=== PATIENT | male | born 1960 | race Caucasian/White ===

== ENCOUNTER 2017-08-23 16:50 | Emergency (ER) | payer BC ==
[2017-08-23 17:19] LABS: BASO % 0.2 % (0-6); EOS % 1.4 % (0-6); HEMATOCRIT 43.4 % (42.0-52.0); HEMOGLOBIN 14.5 gm/dl (14.0-18.0); LYMPH % 15.7 % (16-45); MEAN CELL VOLUME 89.3 fl (81-97); MEAN CORPUSCULAR HEMOGLOBIN 29.8 pg (27-33); MEAN CORPUSCULAR HGB CONC 33.4 g/dl (32-36); MEAN PLATELET VOLUME 9.2 fl (7.4-10.4); MONO % 14.7 % (0-9); PLATELET COUNT 309 K/uL (130-400); RED BLOOD COUNT 4.86 M/uL (4.40-5.70); RED CELL DISTRIBUTION WIDTH 13.4 % (11.5-14.5); WHITE BLOOD COUNT W/O DIFF 5.7 K/uL (4.2-12.2)
--- NOTE | 2017-08-23 17:26 | Emergency Department Record ---
History of Present Illness - General Chief complaint: Head Injury Stated complaint: LIMB FELL AND HIT HEAD Time Seen by Provider: 08/23/17 17:09 Mode of Arrival: Ambulatory - History of Present Illness Initial comments: cutting a tree down and limb in the top of tree came down and hit him in the left occipital area of scalp. momentary LOC and he ambulated to the ED with a 4 inch laceration of scalp. No nausea or vomiting and only hurts where the tree hit his head. No other injuries. Neck sore on palpation and hard collar placed Onset/Timin -: Minutes(s) Mechanism of Injury: Work related injury Location: Occipital Loss of Consciousness: Yes Previous Trauma to this Area: No Place: Outdoors Severity: Mild Provoking factors: None known Other Injuries: None Associated Symptoms: Denies other symptoms - Related Data Home Medications Medication Instructions Recorded Confirmed Last Taken No Home Med [NO HOME MEDS] 08/23/17 08/23/17 Unknown Allergies/Adverse reactions: Allergies Allergy/AdvReac Type Severity Reaction Status Date / Time Penicillins Allergy Unknown unknown Verified 08/23/17 16:53 Travel Screening - Travel/Exposure Within Last 30 Days Have you traveled within the last 30 days?: No - Travel/Exposure Within Last Year Have you traveled outside the [place] in the last year?: No - Additonal Travel Details Have you been exposed to anyone with a communicable illness?: No - Travel Symptoms Symptom Screening: None Review of Systems Reviewed: No additional complaints except as noted below Constitutional: Reports: As per HPI. Denies: Chills, Fever, Malaise, Night sweats, Weakness, Weight change Eyes: Reports: As per HPI. Denies: Eye discharge, Eye pain, Photophobia, Vision change ENT: Reports: As per HPI. Denies: Congestion, Dental pain, Ear pain, Epistaxis , Hearing loss, Throat pain Respiratory: Reports: As per HPI. Denies: Cough, Dyspnea, Hemoptysis, Stridor, Wheezes Cardiovascular: Reports: As per HPI. Denies: Arrhythmia, Chest pain, Dyspnea on exertion, Edema, Murmurs, Orthopnea, Palpitations, Paroxysmal nocturnal dyspnea, Rheumatic Fever, Syncope Endocrine: Reports: As per HPI. Denies: Fatigue, Heat or cold intolerance, Polydipsia, Polyuria Gastrointestinal: Reports: As per HPI. Denies: Abdominal pain, Constipation, Diarrhea, Hematemesis, Hematochezia, Melena, Nausea, Vomiting Genitourinary: Reports: As per HPI. Denies: Dysuria, Frequency, Hematuria, Incontinence, Retention, Testicular pain, Testicular mass, Urgency Musculoskeletal: Reports: As per HPI. Denies: Arthralgia, Back pain, Gout, Joint swelling, Myalgia, Neck pain Skin: Reports: As per HPI. Denies: Bruising, Change in color, Change in hair/ nails, Lesions, Pruritus, Rash Neurological: Reports: As per HPI. Denies: Abnormal gait, Confusion, Headache, Numbness, Paresthesias, Seizure, Tingling, Tremors, Vertigo, Weakness Psychiatric: Reports: As per HPI. Denies: Anxiety, Auditory hallucinations, Depression, Homicidal thoughts, Suicidal thoughts, Visual hallucinations Hematological/Lymphatic: Reports: As per HPI. Denies: Anemia, Blood Clots, Easy bleeding, Easy bruising, Swollen glands Past Medical History - SOCIAL HISTORY Smoking Status: Unknown if ever smoked Alcohol Use: Occasional Drug Use: None - RESPIRATORY Hx Respiratory Disorders: No - CARDIOVASCULAR Hx Cardio Disorders: No - NEURO Hx Neuro Disorders: No - GI Hx GI Disorders: No - Hx Genitourinary Disorders: No - ENDOCRINE Hx Endocrine Disorders: No - MUSCULOSKELETAL Hx Musculoskeletal Disorders: No - PSYCH Hx Psych Problems: No - HEMATOLOGY/ONCOLOGY Hx Hematology/Oncology Disorders: No Family Medical History Any Significant Family History?: No Physical Exam - General General Appearance: Alert, Oriented x3, Cooperative, No acute distress - Head Head exam: Normal inspection - Eye Eye exam: Normal appearance, PERRL Pupils: Normal accommodation - ENT ENT exam: Normal exam, Mucous membranes moist, Normal external ear exam, Normal orophraynx, TM's normal bilaterally Ear exam: Normal external inspection. negative: External canal tenderness Nasal Exam: Normal inspection. negative: Discharge, Sinus tenderness Mouth exam: Normal external inspection, Tongue normal Teeth exam: Normal inspection. negative: Dental caries Throat exam: Normal inspection. negative: Tonsillar erythema, Tonsillar exudate - Neck Neck exam: Normal inspection, Full ROM. negative: Tenderness - Respiratory Respiratory exam: Normal lung sounds bilaterally. negative: Respiratory distress - Cardiovascular Cardiovascular Exam: Regular rate, Normal rhythm, Normal heart sounds - GI/Abdominal GI/Abdominal exam: Soft, Normal bowel sounds. negative: Tenderness - Rectal Rectal exam: Deferred - exam: Deferred - Extremities Extremities exam: Normal inspection, Full ROM, Normal capillary refill. negative: Tenderness - Back Back exam: Reports: Normal inspection, Full ROM. Denies: Muscle spasm, Rash noted, Tenderness - Neurological Neurological exam: Alert, Normal gait, Oriented X3, Reflexes normal - Psychiatric Psychiatric exam: Normal affect, Normal mood - Skin Skin exam: Other (scalp laceration and scalp hematoma 4 inches) Course Vital Signs 08/23/17 16:58 Temperature 97.6 F Pulse Rate 94 H Respiratory 20 Rate Blood Pressure 124/88 Pulse Ox 98 4 inch laceration - Reevaluation(s) Reevaluation #1: laceration repair 1% lidocaine cleaned wound irrigated wound repaired with 4.0 prolin times 8 sutures 08/23/17 19:18 08/23/17 19:51 Medical Decision Making - Data Complexity MDM Data: Labs Ordered and/or Reviewed, X-Ray Ordered and/or Reviewed (CT head neg ,CT of neck negative) - Lab Data Result diagrams: 08/23/17 17:13 Lab Results 08/23/17 Range/Units 17:13 WBC 5.7 (4.2-12.2) K/uL RBC 4.86 (4.40-5.70) M/uL Hgb 14.5 (14.0-18.0) gm/dl Hct 43.4 (42.0-52.0) % MCV 89.3 (81-97) fl MCH 29.8 (27-33) pg MCHC 33.4 (32-36) g/dl RDW 13.4 (11.5-14.5) % Plt Count 309 (130-400) K/uL MPV 9.2 (7.4-10.4) fl Gran % 68.0 (47-80) % Lymphocytes % 15.7 L (16-45) % Monocytes % 14.7 H (0-9) % Eosinophils % 1.4 (0-6) % Basophils % 0.2 (0-6) % Disposition Clinical Impression: Laceration of scalp Qualifiers: Encounter type: initial encounter Qualified Code(s): S01.01XA - Laceration without foreign body of scalp, initial encounter Contusion of head Qualifiers: Encounter type: initial encounter Contusion of head detail: scalp Qualified Code(s): S00.03XA - Contusion of scalp, initial encounter Disposition: Home, Self-Care Condition: (1) Good Instructions: Concussion (ED), Laceration (ED) Additional Instructions: tylenol for pain sutures out harry 10 days Forms: Patient Portal Access Time of Disposition: 19:56 Quality - Quality Measures Quality Measures: N/A - Blood Pressure Screening Does Patient Have Any of the Following: No Blood Pressure Classification: Pre-Hypertensive BP Reading Systolic Measurement: 124 Diastolic Measurement: 88 Screening for High Blood Pressure: < Pre-Hypertensive BP, F/U Documented > [ G8950] Pre-Hypertensive Follow-up Interventions: Referral to alternative/primary care provider.
[2017-08-23] MEDS ORDERED: Diph,Pert(Acell),Tet Vac 0.5 ML SYR IM ONE (19:18)
--- NOTE | 2017-08-23 19:38 | CT SCAN REPORT ---
EXAM: CT SCAN HEAD WO CONTRAST HISTORY: HEAD TRAUMA, LARGE TREE BRANCH FELL ON TOP OF HEAD WITH HEADACHE AND NECK PAIN. TECHNIQUE: Axial CT scan of the head performed without IV contrast. COMPARISON: None. ENCOUNTER: Initial. FINDINGS: No definite acute intracranial hemorrhage identified. No focal mass effect or midline shift apparent. Prominent soft tissue swelling in the scalp of the high left parietal region. No definite underlying calvarial fracture identified. Visualized paranasal sinuses and mastoids all appear essentially clear. IMPRESSION: 1. APPEARANCE CONSISTENT WITH A SCALP HEMATOMA IN THE HIGH LEFT PARIETAL REGION. 2. NO DEFINITE ACUTE INTRACRANIAL HEMORRHAGE OR FOCAL MASS EFFECT IDENTIFIED. JOB NUMBER: [id number] MTDD
--- NOTE | 2017-08-23 19:45 | CT SCAN REPORT ---
EXAM: CT SCAN CERVICAL SPINE WO CONTRAST HISTORY: LARGE TREE BRANCH FELL ON TOP OF HEAD WITH HEAD AND NECK PAIN. TECHNIQUE: Axial CT scan of the entire cervical spine performed without IV contrast. COMPARISON: No prior cervical CT with which to compare. Comparison is made with an AP and lateral plain film series of the cervical spine dated 06/25/[address] Almeida's office that have been loaded into our PACS. Report of the prior study is not available. ENCOUNTER: Initial. FINDINGS: There is an anterior cervical fusion at the C5-6 level with an associated metallic plate and screw fixation device in place. This is new compared with the prior plain film series of 06/25/14. Mild apical pleural thickening bilaterally. No apical pneumothorax is evident. No definite fracture of the cervical spine identified. No prevertebral soft tissue swelling is evident. There is degenerative change at multiple levels including the C4-5 and C6-7 interspaces with associated hypertrophic spurring as well as degenerative change at the odontoid/anterior arch of C1 articulation. Multilevel facet joint arthropathy as well, particularly at the C4 -5 level on the right. IMPRESSION: 1. NO DEFINITE FRACTURE OR PREVERTEBRAL SOFT TISSUE SWELLING SEEN IN THE CERVICAL SPINE. 2. POST-OP ANTERIOR CERVICAL FUSION AT THE C5-6 LEVEL. 3. MULTILEVEL DEGENERATIVE CHANGE IN THE CERVICAL SPINE. JOB NUMBER: [id number] MTDD
== END 2017-08-23 20:12 | disposition home or self-care (01) ==
LOC: ER 16:50
DX: S01.01XA Laceration without foreign body of scalp, initial encounter (principal); S00.03XA Contusion of scalp, initial encounter; R51 Headache; W22.8XXA Striking against or struck by other objects, initial encounter; Y93.H9 Activity, other involving exterior property and land maintenance, building and construction; Y99.0 Civilian activity done for income or pay
CPT/HCPCS: 12004; 70450; 72125; 85025; 90715; 96372; 99284

== ENCOUNTER 2017-09-02 09:12 | Emergency (ER) | payer BC ==
--- NOTE | 2017-09-02 09:36 | Emergency Department Record ---
History of Present Illness - General Chief Complaint: Suture removal Stated Complaint: stitches removed Source: Patient, RN notes reviewed - History of Present Illness Initial Comments: laceration healing nicely, No headaches and no nausea, neuro intact - Related Data Allergies Allergy/AdvReac Type Severity Reaction Status Date / Time Penicillins Allergy Unknown unknown Verified 09/02/17 09:34 Review of Systems Reviewed: No additional complaints except as noted below Constitutional: Reports: As per HPI. Denies: Chills, Fever, Malaise, Night sweats, Weakness, Weight change Eyes: Reports: As per HPI. Denies: Eye discharge, Eye pain, Photophobia, Vision change ENT: Reports: As per HPI. Denies: Congestion, Dental pain, Ear pain, Epistaxis , Hearing loss, Throat pain Respiratory: Reports: As per HPI. Denies: Cough, Dyspnea, Hemoptysis, Stridor, Wheezes Cardiovascular: Reports: As per HPI. Denies: Arrhythmia, Chest pain, Dyspnea on exertion, Edema, Murmurs, Orthopnea, Palpitations, Paroxysmal nocturnal dyspnea, Rheumatic Fever, Syncope Endocrine: Reports: As per HPI. Denies: Fatigue, Heat or cold intolerance, Polydipsia, Polyuria Gastrointestinal: Reports: As per HPI. Denies: Abdominal pain, Constipation, Diarrhea, Hematemesis, Hematochezia, Melena, Nausea, Vomiting Genitourinary: Reports: As per HPI. Denies: Dysuria, Frequency, Hematuria, Incontinence, Retention, Testicular pain, Testicular mass, Urgency Musculoskeletal: Reports: As per HPI. Denies: Arthralgia, Back pain, Gout, Joint swelling, Myalgia, Neck pain Skin: Reports: As per HPI. Denies: Bruising, Change in color, Change in hair/ nails, Lesions, Pruritus, Rash Neurological: Reports: As per HPI. Denies: Abnormal gait, Confusion, Headache, Numbness, Paresthesias, Seizure, Tingling, Tremors, Vertigo, Weakness Psychiatric: Reports: As per HPI. Denies: Anxiety, Auditory hallucinations, Depression, Homicidal thoughts, Suicidal thoughts, Visual hallucinations Hematological/Lymphatic: Reports: As per HPI. Denies: Anemia, Blood Clots, Easy bleeding, Easy bruising, Swollen glands Past Medical History - SOCIAL HISTORY Smoking Status: Unknown if ever smoked Drug Use: None - RESPIRATORY Hx Respiratory Disorders: No - CARDIOVASCULAR Hx Cardio Disorders: No - NEURO Hx Neuro Disorders: No - GI Hx GI Disorders: No - Hx Genitourinary Disorders: No - ENDOCRINE Hx Endocrine Disorders: No - MUSCULOSKELETAL Hx Musculoskeletal Disorders: No - PSYCH Hx Psych Problems: No - HEMATOLOGY/ONCOLOGY Hx Hematology/Oncology Disorders: No Physical Exam - General General Appearance: Alert, Oriented x3, Cooperative, No acute distress - Head Head exam: Normal inspection - Eye Eye exam: Normal appearance, PERRL Pupils: Normal accommodation - ENT ENT exam: Normal exam, Mucous membranes moist, Normal external ear exam, Normal orophraynx, TM's normal bilaterally Ear exam: Normal external inspection. negative: External canal tenderness Nasal Exam: Normal inspection. negative: Discharge, Sinus tenderness Mouth exam: Normal external inspection, Tongue normal Teeth exam: Normal inspection. negative: Dental caries Throat exam: Normal inspection. negative: Tonsillar erythema, Tonsillar exudate - Neck Neck exam: Normal inspection, Full ROM. negative: Tenderness - Respiratory Respiratory exam: Normal lung sounds bilaterally. negative: Respiratory distress - Cardiovascular Cardiovascular Exam: Regular rate, Normal rhythm, Normal heart sounds - GI/Abdominal GI/Abdominal exam: Soft, Normal bowel sounds. negative: Tenderness - Rectal Rectal exam: Deferred - exam: Deferred - Extremities Extremities exam: Normal inspection, Full ROM, Normal capillary refill. negative: Tenderness - Back Back exam: Reports: Normal inspection, Full ROM. Denies: Muscle spasm, Rash noted, Tenderness - Neurological Neurological exam: Alert, Normal gait, Oriented X3, Reflexes normal - Psychiatric Psychiatric exam: Normal affect, Normal mood - Skin Skin exam: Dry, Intact, Normal color, Warm Course suture removal Disposition Clinical Impression: Visit for suture removal Disposition: Home, Self-Care Condition: (1) Good Instructions: Stitches Removal (ED) Additional Instructions: follow up with family Time of Disposition: 09:36 Quality - Quality Measures Quality Measures: N/A - Blood Pressure Screening Does Patient Have Any of the Following: No Systolic Measurement: ~ Screening for High Blood Pressure: < Pre-Hypertensive BP, F/U Documented > [ G8950] Pre-Hypertensive Follow-up Interventions: Referral to alternative/primary care provider.
== END 2017-09-02 09:45 | disposition home or self-care (01) ==
LOC: ER 09:12
DX: Z48.01 Encounter for change or removal of surgical wound dressing (principal)

== ENCOUNTER 2019-06-07 20:13 | Emergency (ER) | payer BC ==
--- NOTE | 2019-06-07 20:23 | Emergency Department Record ---
History of Present Illness - General Chief Complaint: Laceration(s) Stated Complaint: FALL INJURY/HEAD Time Seen by Provider: 06/07/19 20:14 Source: Patient Mode of Arrival: Ambulatory Limitations: No limitations - History of Present Illness Initial Commments: 58 yo male presents to ED for evaluation following a fall while working on ladder in his garage that occurred just prior to arrival. Patient reports striking the left posterior aspect of the scalp, is unsure if he lost consciousness or not. Patient denies extremity weakness, numbness, or tingling on examination. Patient denies blurred vision or altered speech. Patient denies use of anticoagulation medications, and reports only a history of HTN at his baseline. Onset/Timin -: Minutes(s) Place: Home Context: Accidental Associated Symptoms: None Treatments Prior to Arrival: Bandage - [place] Coma Scale Eye Response: (4) Open spontaneously Motor Response: (6) Obeys commands Verbal Response: (5) Oriented Franco Total: 15 - Related Data Hx Tetanus Toxoid Vaccination: Yes Year of Tetanus Vaccination: 2005 Previous Rx's Medication Instructions Recorded Diazepam [Valium] 5 mg PO Q8H PRN #15 tab 06/07/19 Hydrocodone/Acetaminophen [[place] 1 each PO Q6H PRN #15 tablet 06/07/19 7.5-325 Tablet] Ibuprofen [Motrin] 800 mg PO Q8H PRN #30 tab 06/07/19 Allergies Allergy/AdvReac Type Severity Reaction Status Date / Time Penicillins Allergy Unknown unknown Verified 06/07/19 20:15 Review of Systems Constitutional: Denies: Chills, Fever, Malaise, Night sweats Eyes: Denies: Eye discharge, Eye pain ENT: Denies: Congestion, Ear pain, Epistaxis Respiratory: Denies: Cough, Dyspnea Cardiovascular: Denies: Chest pain, Paroxysmal nocturnal dyspnea Endocrine: Denies: Fatigue, Heat or cold intolerance Gastrointestinal: Denies: Abdominal pain, Nausea, Vomiting Genitourinary: Denies: Incontinence, Retention Musculoskeletal: Denies: Arthralgia, Back pain Skin: Reports: Other (Scalp laceration). Denies: Bruising, Change in color Neurological: Denies: Abnormal gait, Confusion, Seizure Psychiatric: Denies: Anxiety Hematological/Lymphatic: Denies: Anemia, Blood Clots, Easy bleeding, Easy bruising Past Medical History - SOCIAL HISTORY Smoking Status: Unknown if ever smoked Drug Use: None - RESPIRATORY Hx Respiratory Disorders: No - CARDIOVASCULAR Hx Cardio Disorders: No - NEURO Hx Neuro Disorders: No - GI Hx GI Disorders: No - Hx Genitourinary Disorders: No - ENDOCRINE Hx Endocrine Disorders: No - MUSCULOSKELETAL Hx Musculoskeletal Disorders: No - PSYCH Hx Psych Problems: No - HEMATOLOGY/ONCOLOGY Hx Hematology/Oncology Disorders: No Physical Exam - General General Appearance: Alert, Oriented x3, Cooperative, Mild distress, Other (Patient does smell of alcohol on examination, no focal deficits are present on examination.) Limitations: No limitations - Head Head exam detail: Laceration (4.0 cm laceration to the left posteriro scalp, bleeding controlled.). negative: Abrasion, Contusion, Travis's sign, General tenderness, Hematoma - Eye Eye exam: Normal appearance. negative: Conjunctival injection, Periorbital swelling, Periorbital tenderness, Scleral icterus - ENT Ear exam: negative: Auricular hematoma, Auricular trauma Nasal Exam: negative: Active bleeding, Discharge, Dried blood, Foreign body Mouth exam: negative: Drooling, Laceration, Muffled voice, Tongue elevation - Neck Neck exam: Normal inspection. negative: Meningismus, Tenderness - Respiratory Respiratory exam: Normal lung sounds bilaterally. negative: Rales, Respiratory distress, Rhonchi, Stridor - Cardiovascular Cardiovascular Exam: Regular rate, Normal rhythm, Normal heart sounds - GI/Abdominal GI/Abdominal exam: Soft. negative: Rebound, Rigid, Tenderness - Rectal Rectal exam: Deferred - exam: Deferred - Extremities Extremities exam: Normal inspection. negative: Pedal edema, Tenderness - Back Back exam: Reports: Paraspinal tenderness (Left lumbar region). Denies: CVA tenderness (R), CVA tenderness (L), Rash noted - Neurological Neurological exam: Alert, Normal gait, Oriented X3 - Psychiatric Psychiatric exam: Normal affect, Normal mood - Skin Skin exam: Normal color. negative: Abrasion Type of lesion: negative: abrasion Course - Reevaluation(s) Reevaluation #1: 06/07/19 20:26 EKG: NSR 63 Normal axis, normal intervals J-point elevation V2, V3, no arrhythmias or acute ST-T wave changes. Reevaluation #2: 06/07/19 21:02 Laboratory studies were reviewed and appear grossly unremarkable for an acute process except for the following: Alcohol 0.208 CT Brain: No acute intracranial hemorrhage or mass effect STS left parietal scalp CT Cervical Spine: Fusion C5-C6 No acute fracture CT Thoracic Spine: Minimally displaced fracture involving the L1 transverse fracture No thoracic fracture is identified CT Lumbar Spine: Transverse process fractures L1, L2. L3, L4 Chronic pars defect L5 Patient was updated on all results, will consult with Neurosurgery and Trauma services. 06/07/19 22:48 Case was discussed with Dr. Rucker (Neurosurgery) and Dr. Peoples (Trauma), if the patient's pain is well controlled and he is able to ambulate, patient may be discharged home with pain control as directed. Recommendations were discussed with both the patient and his , they are in agreement with the plan of care as discussed and prefer to go home at this time. Patient has seen Dr. Rucker previously for cervical fusion and is a previous patient of his. Reevaluation #3: 06/07/19 21:33 Procedure Note: 4.0 cm laceration to the left posterior scalp, bleeding controlled. Wound was cleaned and prepped in sterile fashion, no residual FB identified on examination. Wound was anesthetized with 1.5 mL of 1% Lidocaine with epinephrine with good anesthesia, and the laceration was repaired with 3-0 Prolene (#6) sutures in interrupted fashion. Patient tolerated the procedure well without complications. Patient's tetanus is UTD Triple antibiotic ointment was applied to the wound and sutures prior to discharge. Wound care instructions were given as well. Medical Decision Making - Lab Data Result diagrams: 06/07/19 20:29 06/07/19 20:29 Critical Care Time Critical Care Time: Yes Total Critical Care Time: 60 Critical Care Time: Trauma evaluation, laboratory interpretation, multiple reassessments and updates, independent review and interpretation of the patient's CT imaging, consultation with both neurosurgery and trauma services, and establishing a safe discharge plan with follow-up. Disposition Disposition: Discharge Clinical Impression: Multiple contusions, Multiple transverse process fractures Fall from ladder Qualifiers: Encounter type: initial encounter Qualified Code(s): W11.XXXA - Fall on and from ladder, initial encounter Scalp laceration Qualifiers: Encounter type: initial encounter Qualified Code(s): S01.01XA - Laceration without foreign body of scalp, initial encounter Disposition: Home, Self-Care Condition: (2) Stable Instructions: Staple Care (ED), Avulsion Fracture (ED) Additional Instructions: Return to ED if your symptoms worsen or if you have any concerns. [place], Valium Motrin 800 mg as directed. Follow-up with Dr. Rucker in 3-5 days as directed. Prescriptions: Ibuprofen [Motrin] 800 mg PO Q8H PRN #30 tab PRN Reason: Pain - Mod To Severe (5-10) Hydrocodone/Acetaminophen [[place] 7.5-325 Tablet] 1 each PO Q6H PRN #15 tablet PRN Reason: Pain - Moderate (5-7) Diazepam [Valium] 5 mg PO Q8H PRN #15 tab PRN Reason: Spasms Referrals: NICOLE RUCKER [MEDICAL DOCTOR] - Forms: Patient Portal Access Time of Disposition: 22:47 Quality - Quality Measures Quality Measures: N/A - Blood Pressure Screening Does Patient Have Any of the Following: No Blood Pressure Classification: Normal BP Reading Systolic Measurement: 117 Diastolic Measurement: 78 Screening for High Blood Pressure: < Normal BP, F/U Not Required > [G8783] Pre-Hypertensive Follow-up Interventions: Referral to alternative/primary care provider.
[2019-06-07 20:36] LABS: ABSOLUTE NEUTROPHIL COUNT 2.57; HEMATOCRIT 43.5 % (42.0-52.0); HEMOGLOBIN 14.4 gm/dl (14.0-18.0); MEAN CELL VOLUME 90.6 fl (81-97); MEAN CORPUSCULAR HGB CONC 33.1 g/dl (32-36); MEAN PLATELET VOLUME 9.2 fl (7.4-10.4); PLATELET COUNT 256 K/uL (130-400); RED CELL DISTRIBUTION WIDTH 14.1 % (11.5-14.5); WHITE BLOOD COUNT W/O DIFF 5.1 K/uL (4.2-12.2)
[2019-06-07 20:45] LABS: BLOOD UREA NITROGEN 10 mg/dL (6-20); CREATININE 0.9 mg/dL (0.7-1.2); EST GLOMERULAR FILTRATION RATE > 60 mL/min
[2019-06-07 20:46] LABS: ALCOHOL 0.208 g/dL (0-0.010); TOTAL PROTEIN 6.6 g/dL (6.6-8.7)
[2019-06-07 20:48] LABS: GLUCOSE,RANDOM 105 mg/dL (74-109)
[2019-06-07 20:50] LABS: ALB/GLOB RATIO 2.1 (1.1-1.8); ALBUMIN 4.5 g/dL (4.0-5.0); ALKALINE PHOSPHATASE 88 U/L (40-129); ALT/SGPT 47 U/L (<41); AST/SGOT 41 U/L (10.0-50.0)
[2019-06-07 21:06] LABS: ANISOCYTOSIS 1+; PLATELET ESTIMATE NORMAL (NORMAL)
[2019-06-07] MEDS ORDERED: DIAZEPAM 5 MG TABLET PO ONE (22:45)
[2019-06-07] MEDS ORDERED: HYDROCODONE/APAP 5/325MG TABLET PO ONE (22:45)
--- NOTE | 2019-06-08 21:25 | CT SCAN REPORT ---
EXAM: CT SCAN HEAD WO CONTRAST HISTORY: PATIENT FELL OFF LADDER, HEAD INJURY. TECHNIQUE: Axial CT scan of the head performed without IV contrast. COMPARISON: Head CT 08/23/17. ENCOUNTER: Initial. FINDINGS: No definite acute intracranial hemorrhage identified. No focal mass effect or midline shift evident. No definite acute infarct or intracranial mass lesion seen. There is probably some mild scalp soft tissue swelling high in the paramedian left parietal region. No depressed calvarial fracture evident. IMPRESSION: 1. NO DEFINITE ACUTE INTRACRANIAL HEMORRHAGE OR FOCAL MASS EFFECT EVIDENT. 2. THERE IS PROBABLY SOME MILD SCALP SOFT TISSUE SWELLING HIGH IN THE PARAMEDIAN LEFT PARIETAL REGION. JOB NUMBER: [id number] MTDD
--- NOTE | 2019-06-09 07:09 | CT SCAN REPORT ---
DATE: 06/07/2019. EXAM: CT SCAN OF THE CERVICAL SPINE WITHOUT CONTRAST. HISTORY: FELL FROM LADDER. TECHNIQUE: Multiplanar, multisequence MR imaging of the cervical spine was performed in the axial plane without contrast. Additional coronal and sagittal reformatted images were also performed. ENCOUNTER: Initial. COMPARISON: 08/23/2017. FINDINGS: The patient is status post anterior fusion at the C5-6 level. There is normal cervical alignment. The craniocervical and cervicothoracic junctions are normal. Mild disc space narrowing and endplate degenerative changes are present at the C4-5 and C6-7 levels. There is no acute fracture, subluxation, or prevertebral soft tissue swelling. Facet arthropathy is present at multiple levels. Mild neural foraminal narrowing is also present at multiple levels. There is no gross spinal stenosis. The neck soft tissues are normal. Minor pleural and parenchymal scarring are present at the lung apices. IMPRESSION: 1. NO ACUTE CERVICAL SPINE PATHOLOGY. 2. CHRONIC FINDINGS ABOVE. Job Number: [id number] [facility]
--- NOTE | 2019-06-09 07:37 | CT SCAN REPORT ---
DATE: 06/07/2019. EXAM: CT SCAN OF THE THORACIC SPINE WITHOUT CONTRAST. HISTORY: FELL FROM LADDER. BACK PAIN. TECHNIQUE: Standard CT imaging of the thoracic spine was performed in the axial plane without contrast. COMPARISON: None. FINDINGS: There is normal thoracic alignment. Very minor endplate degenerative changes are present throughout the thoracic spine. The vertebral body heights are maintained. There is no acute thoracic spine fracture. Note is made of a minimally displaced acute fracture involving the left L1 transverse process. No other fractures are visible. The heart, great vessels, mediastinum, and molly appear normal. Mild pleural and parenchymal scarring are present at the lung apices. There are no acute pulmonary infiltrates or effusions. There is no pneumothorax. There is a 5.0-mm subpleural nodule just above the left hemidiaphragm on image number 107. A 4.0-mm noncalcified nodule is present within the left lower lobe on image number 77. There is a 3.0-mm perifissural nodule along the minor fissure on image number 63. The remaining lung hansen are clear. A 2.0-mm nonobstructing stone is present within the upper pole of the left kidney. The upper abdomen is otherwise unremarkable. IMPRESSION: 1. MINIMALLY DISPLACED FRACTURE OF THE LEFT L1 TRANSVERSE PROCESS. NO ACUTE THORACIC SPINE FRACTURES ARE IDENTIFIED. 2. NO ACUTE INTRATHORACIC PATHOLOGY. 3. SMALL, NONCALCIFIED LUNG NODULES DESCRIBED. A FOLLOW-UP CHEST CT IS RECOMMENDED IN 12 MONTHS TO CONFIRM STABILITY. 4. 2.0-MM NONOBSTRUCTING STONE WITHIN THE LEFT KIDNEY. Job Number: [id number] [facility]
--- NOTE | 2019-06-09 08:05 | CT SCAN REPORT ---
DATE: 06/07/2019. EXAM: CT SCAN OF THE LUMBAR SPINE WITHOUT CONTRAST. HISTORY: BACK PAIN. FELL FROM LADDER. TECHNIQUE: Standard CT imaging of the lumbar spine was performed in the axial plane without contrast. Additional coronal and sagittal reformatted images were also performed. ENCOUNTER: Initial. COMPARISON: None. FINDINGS: There are five lumbar vertebral segments. Bilateral spondylolysis is present at the L5 level with very slight anterolisthesis of L5 on S1. Mild disc space narrowing is present throughout the lumbar spine. Minor facet arthropathy and endplate degenerative changes are also present throughout. There are acute, mildly displaced fractures involving the left L1, L2, L3, and L4 transverse processes. No other fractures are identified. There is no acute intra- abdominal pathology. A short-segment, non-obstructing small bowel intussusception is present within the left upper quadrant. This is a common transient finding within this region. There is no acute bowel pathology. A small cyst is noted within the left hepatic lobe. IMPRESSION: 1. ACUTE, MILDLY DISPLACED FRACTURES OF THE LEFT L1 THROUGH L4 TRANSVERSE PROCESSES. 2. 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 3. A 2.0-MM NONOBSTRUCTING STONE WITHIN THE LEFT KIDNEY. 4. ADDITIONAL INCIDENTAL FINDINGS ABOVE. Job Number: [id number] [facility]
== END 2019-06-07 23:02 | disposition home or self-care (01) ==
LOC: ER 20:13
DX: S22.018A Other fracture of first thoracic vertebra, initial encounter for closed fracture (principal); S32.018A Other fracture of first lumbar vertebra, initial encounter for closed fracture; S32.028A Other fracture of second lumbar vertebra, initial encounter for closed fracture; S32.038A Other fracture of third lumbar vertebra, initial encounter for closed fracture; S32.048A Other fracture of fourth lumbar vertebra, initial encounter for closed fracture; S01.01XA Laceration without foreign body of scalp, initial encounter; W11.XXXA Fall on and from ladder, initial encounter; Y92.008 Other place in unspecified non-institutional (private) residence as the place of occurrence of the external cause; I10 Essential (primary) hypertension; F17.220 Nicotine dependence, chewing tobacco, uncomplicated
CPT/HCPCS: 12002 ×2; 99285 ×2; 80053; 85027; 72125; 70450; 72131; 72128; 93005; 93010; G0480; J3490; 80320

== ENCOUNTER 2019-06-14 09:42 | Emergency (ER) | payer BC ==
--- NOTE | 2019-06-14 09:52 | Emergency Department Record ---
History of Present Illness - General Chief Complaint: Suture removal Stated Complaint: Suture removal Time Seen by Provider: 06/14/19 09:44 Source: Patient Mode of arrival: Ambulatory Limitations: No limitations - History of Present Illness Initial Comments: The patient is here due to suture removal. He denies any scalp issues. MD Complaint: Suture/staple removal - Related Data Previous Rx's Medication Instructions Recorded Diazepam [Valium] 5 mg PO Q8H PRN #15 tab 06/07/19 Hydrocodone/Acetaminophen [[place] 1 each PO Q6H PRN #15 tablet 06/07/19 7.5-325 Tablet] Ibuprofen [Motrin] 800 mg PO Q8H PRN #30 tab 06/07/19 Allergies Allergy/AdvReac Type Severity Reaction Status Date / Time Penicillins Allergy Unknown unknown Verified 06/07/19 20:15 Past Medical History - SOCIAL HISTORY Alcohol Use Comment: 4 beers today - RESPIRATORY Hx Respiratory Disorders: No - CARDIOVASCULAR Hx Cardio Disorders: No - NEURO Hx Neuro Disorders: No - GI Hx GI Disorders: No - Hx Genitourinary Disorders: No - ENDOCRINE Hx Endocrine Disorders: No - MUSCULOSKELETAL Hx Musculoskeletal Disease: Yes Comment:: knee and neck - PSYCH Hx Psych Problems: No - HEMATOLOGY/ONCOLOGY Hx Hematology/Oncology Disorders: No Physical Exam - General General Appearance: Alert, Oriented x3, Cooperative, No acute distress - Head Head exam: Normocephalic (The 6 sutures were removed without any issues.). negative: Atraumatic Disposition Disposition: Discharge Clinical Impression: Encounter for removal of sutures Disposition: Home, Self-Care Condition: (2) Stable Instructions: Stitches Removal (ED) Additional Instructions: Return to the ER for any problems. Forms: Patient Portal Access Time of Disposition: 09:52 Quality - Quality Measures Quality Measures: N/A - Blood Pressure Screening View Details: Yes Does Patient Have Any of the Following: No Blood Pressure Classification: Pre-Hypertensive BP Reading Systolic Measurement: 136 Diastolic Measurement: 85 Screening for High Blood Pressure: < Pre-Hypertensive BP, F/U Documented > [G8950] Pre-Hypertensive Follow-up Interventions: Referral to alternative/primary care provider.
== END 2019-06-14 10:00 | disposition home or self-care (01) ==
LOC: ER 09:42
DX: Z48.02 Encounter for removal of sutures (principal)